=== PATIENT | female | born 1995 | race Caucasian/White ===

== ENCOUNTER 2020-12-13 10:12 | Emergency (ER) | payer SELFPAY ==
[~2020-12-13] VITALS: Ht 154.9 cm; Wt 95.3 kg
== END 2020-12-13 12:30 | disposition home or self-care (01) ==
LOC: ED 10:12
DX: S09.90XA Unspecified injury of head, initial encounter (principal); R42 Dizziness and giddiness; W22.09XA Striking against other stationary object, initial encounter; Y93.89 Activity, other specified; Y92.89 Other specified places as the place of occurrence of the external cause; Y99.8 Other external cause status